=== PATIENT | female | born 1985 | race Caucasian/White ===

== ENCOUNTER 2018-08-06 11:27 | Emergency (ER) | payer MEDICAID ==
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
[2018-08-06] MEDS ORDERED: IBUPROFEN 600 MG TABLET PO ONE (13:18)
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
== END 2018-08-06 13:39 | disposition home or self-care (01) ==
LOC: ER 11:27
DX: S60.222A Contusion of left hand, initial encounter (principal); W22.8XXA Striking against or struck by other objects, initial encounter
CPT/HCPCS: 99283